=== PATIENT | female | born 1980 | race Caucasian/White ===

== ENCOUNTER 2021-03-01 06:55 | Day surgery (SDC) | payer OTHER ==
[~2021-03-01 06:55] MED LIST: BUPIVACAINE 0.5% VIAL IJ ONE; Lactated Ringers 1,000 ML IV ONE; XYLOCAINE 1% HCL 20 ML MDV ONE
[2021-03-01] MEDS: CEFAZOLIN 2 GM-D5W BAG** 2 GM/50 ML ML IV SCH (07:21)
[2021-03-01] MEDS: Lactated Ringers 1,000 ML IV SCH (07:21)
[2021-03-01] MEDS ORDERED: DIPRIVAN 200 MG/20 ML IV ONE (10:03)
[2021-03-01] MEDS ORDERED: Versed 2 MG/2 ML Injection ONE (10:03)
[2021-03-01] MEDS ORDERED: SUBLIMAZE 100 MCG/2 ML ONE ×2 (10:03→12:53)
[2021-03-01] MEDS ORDERED: Decadron 4 MG INJ ONE (10:03)
[2021-03-01] MEDS ORDERED: Zofran 4 MG/2 ML VIAL ONE ×2 (10:03→12:37)
[2021-03-01] MEDS ORDERED: Xylocaine-Mpf 2% 5 Ml Vial ONE (10:03)
--- NOTE | 2021-03-01 12:10 | XRAY ---
Indication: Hardware removal left foot. Intraoperative fluoroscopy provided for 2 minute 2 seconds. 7 digital spot images demonstrates partial removal of a talonavicular staple with remnant stable remaining in the navicular bone. Correlate with intraoperative findings/report.
[2021-03-01] MEDS ORDERED: Hydromorphone 1 mg/ml Injection ONE ×2 (12:37→12:53)
--- NOTE | 2021-03-01 14:19 | XRAY ---
2 minutes and 2 seconds fluoroscopy time in surgery for hardware removal of the left foot.
[2021-03-01 14:22] VITALS: BP 121/78; PULSE 87; O2SAT 96
--- NOTE | 2021-03-01 16:35 | OP ---
SURGERY DATE: 03/01/2021 SURGERY TIME: 100 PREOPERATIVE DIAGNOSIS: 1. PAINFUL HARDWARE IN SITU LEFT FOOT. 2. FAILURE OF HARDWARE LEFT FOOT. POSTOPERATIVE DIAGNOSIS: 1. 1. PAINFUL HARDWARE IN SITU LEFT FOOT. 2. FAILURE OF HARDWARE LEFT FOOT. PROCEDURE: 1. Removal of hardware left foot X 1. SURGEON: Deric Maldonado D.P.M. ASSISTED LIVING HOUSEKEEPER: None. ANESTHESIA: General plus local. HEMOSTASIS: An ankle tourniquet set to 250 mm of mercury for 86 minutes total tourniquet time. ESTIMATED BLOOD LOSS: Less than 20 cc. MATERIALS: 2-0 Vicryl and 3-0 Nylon. INJECTABLES: 30 cc of 1:1 mixtures of 1% Lidocaine plain and 25% bupivacaine plain that was injected preoperatively in an ankle block type fashion to the left ankle. INDICATIONS: Sherice is a very pleasant 40 y/o female who presented to my office with the complaint of pain to the left lower extremity which was seen by multiple other providers in the past which indicated that there were no pathologic issues despite an MRI having been performed and multiple sets of x-rays. The patient presents to me with complaints of pain to the inner aspect of the right ankle following a triple arthrodesis that was performed by another physician approximately 5 years ago. On inspection of the radiographs, it seemed as though there is a 5 mm area of backing out of one of the barbara in the talonavicular joint which has been resulting in some pain with subsequent pressure on the medial aspect of the foot. The patient was unaware of this and was informed. She did also have some Achilles tendon pain. However, no pathology was demonstrated with the MRI that was performed and no significant clinical issues were apparent with physician exam other than equinus deformity as well as some insertional Achilles tendonitis that was not picked up on the MRI with contrast. It is at this time we decided to proceed with surgical intervention of removal of hardware to the painful site at the medial and lateral aspect of the foot. The patient understands all risks, benefits, and complications of the procedure and still wishes to proceed with surgical intervention consisting of removal of hardware. PROCEDURE: The patient was brought in to the OR and assessed by the anesthesia team preoperative. At this time, general anesthesia was provided for the patient and the patient was sedated. At this time, a well-padded ankle tourniquet was applied to the left ankle and was set to 250 mm Hg. At this time, the left foot was prepped and draped in the typical sterile fashion and the extremity was lowered onto the surgical field. At this time, attention was directed to the left foot where an Esmarch was utilized to exsanguinate the foot. Fluoroscopy was utilized to assess the site where there was a backing out staple. Incision was made directly over this staple and the staple was attempted to be retrieved. At this time, there was significant difficulty with the removal of the hardware which resulted in breakage of the retrieving device. Multiple attempts were made in order to retrieve the orthopedic hardware in total. However, we had to resort to cutting the staple in half with wire cutters in order to retrieve the portion of offset and backing out hardware. The proximal aspect of the hardware was removed in total. However, there was still a residual piece that after multiple attempts of drilling out the hardware in order to prevent more destructive attempts at removing the hardware, it was decided that the hardware be cut flush with the bone and bone wax be applied. At this time, inspection of the surgical site demonstrated that there was no orthopedic hardware that was prominent in this area and no irritating remaining retained hardware in this area despite having one arm of the staple being retained. The patient also had complaint of pain with the orthopedic hardware on the lateral aspect of the foot. However, once dissection was taken place being careful not to disturb any of the neurovascular structures, it was determined that the barbara were imbedded underneath the bone and there would be more destructive forces in order to alleviate the pain that she has been experiencing due to removal of the hardware. Decision was made intraoperatively to leave this hardware intact and is not likely the cause of the pain at the lateral aspect of the foot. However, pain was consistent with the hardware backing out at the medial aspect of the foot. At this time, copious amounts of sterile saline were utilized to flush the surgical sites. 2-0 Vicryl was utilized to coapt the subcutaneous edges and 3-0 Nylon was utilized to coapt the skin edges in an everted type horizontal mattress type fashion. Following this, a dressing consisting of Betadine, Adaptic, 4 X 4's, Kerlex, and Sudarshan was applied to the left lower extremity and postoperatively, a CAM boot was applied. The patient was then reversed from anesthesia and handled the procedure without complication as well as the anesthesia without complication. Vital signs stable and vascular status was intact at the end of the procedure. The patient orders as described in the discharge notes.
== END 2021-03-01 14:15 | disposition home or self-care (01) ==
LOC: SDC 06:55
PROVIDERS: ATTEND Podiatrist Foot & Ankle Surgery
DX: T84.84XA Pain due to internal orthopedic prosthetic devices, implants and grafts, initial encounter (principal); M79.672 Pain in left foot; Z79.899 Other long term (current) drug therapy
CPT/HCPCS: 20680; 73620; 76000; 84703; 88304; J0690; J1100; J1170; J2250; J2405; J2704; J3010

== ENCOUNTER 2021-08-09 08:20 | Day surgery (SDC) | payer OTHER ==
[~2021-08-09 08:20] MED LIST changes: -Lactated Ringers 1,000 ML IV ONE; -XYLOCAINE 1% HCL 20 ML MDV ONE
[2021-08-09] MEDS ORDERED: CEFAZOLIN 2 GM-D5W BAG** 2 GM/50 ML ML IV SCH (09:00)
[2021-08-09] MEDS ORDERED: Lactated Ringers 1,000 ML IV SCH (09:00)
[2021-08-09] MEDS ORDERED: Lactated Ringers 1,000 ML IV ONE ×2 (09:01→16:42)
[2021-08-09] MEDS ORDERED: CEFAZOLIN 2 GM-D5W BAG** 2 GM/50 ML ML IV ONE (09:05)
[2021-08-09] MEDS ORDERED: DIPRIVAN 200 MG/20 ML IV ONE (09:42)
[2021-08-09] MEDS ORDERED: Xylocaine-Mpf 2% 5 Ml Vial ONE (11:38)
[2021-08-09] MEDS ORDERED: Zofran 4 MG/2 ML VIAL ONE (11:38)
[2021-08-09] MEDS ORDERED: SUBLIMAZE 100 MCG/2 ML ONE (11:38)
[2021-08-09] MEDS ORDERED: Versed 2 MG/2 ML Injection ONE (11:38)
[2021-08-09] MEDS ORDERED: Decadron 4 MG INJ ONE ×2 (11:38→15:25)
[2021-08-09] MEDS ORDERED: BRIDION 200MG/2ML IV ONE (11:44)
[2021-08-09] MEDS ORDERED: Zemuron 100 MG/10 ML ONE (11:44)
[2021-08-09] MEDS ORDERED: DILAUDID 2 MG INJECTION ONE (12:32)
[2021-08-09] MEDS ORDERED: BREVIBLOC 100 MG/10 ML IV ONE (14:04)
[2021-08-09] MEDS ORDERED: Ketamine HCl 50 MG/ML ONE (15:07)
[2021-08-09] MEDS ORDERED: Naropin 0.5% 30 ML VIAL ONE (15:25)
[2021-08-09] MEDS ORDERED: EPINEPHRINE 1MG/ML AMP ONE (15:25)
--- NOTE | 2021-08-09 18:07 | XRAY ---
Exam: Intraoperative C-arm images of the left foot from 08/09/2021. Indication: First, second, and third tarsal-metatarsal joint arthrodesis. Intraoperative fluoroscopy was provided for 5 minutes, 43 seconds. 10 intraoperative digital spot images submitted for interpretation demonstrate placement of an orthopedic sideplate along the medial aspect of the medial cuneiform and extending to the distal left first metatarsal shaft. There are 2 adjoining screws fixing the plate to the medial cuneiform and 4 threaded screws fixing the medial plate to the first metatarsal. In addition, there is a more proximal threaded screw traversing the plate and extending through the medial and mid cuneiform bones and into the medial aspect of the lateral cuneiform bone. I also note a threaded screw obliquely traversing the tarsal-second metatarsal joint from the base of the left second metatarsal into the middle cuneiform bone. There is also an obliquely oriented threaded screw traversing the tarsal-third metatarsal joint space extending from the base of the left third metatarsal into the lateral cuneiform bone. Lastly, there is another threaded screw which is oriented in the opposite oblique direction from the lateral cuneiform bone into the base of the left second metatarsal. Other prior placed orthopedic hardware is partially seen within the left hindfoot. Correlate with intraoperative findings/report.
[2021-08-09 18:36] VITALS: O2SAT 94
[2021-08-09 18:44] VITALS: BP 129/77; PULSE 96
--- NOTE | 2021-08-12 15:56 | XRAY ---
5 minutes 43 seconds of fluoroscopy was used in surgery for a left 1st, 2nd, and 3rd tarso-metatarsal joint arthrodesis.
--- NOTE | 2021-08-13 11:34 | OP ---
SURGERY DATE: 08/09/2021 SURGERY TIME: 1155 PREOPERATIVE DIAGNOSIS: 1. TARSOMETATARSAL JOINT OSTEOARTHRITIS 1, 2, AND 3. 2. PAIN LEFT FOOT. POSTOPERATIVE DIAGNOSIS: 1. TARSOMETATARSAL JOINT OSTEOARTHRITIS 1, 2, AND 3. 2. PAIN LEFT FOOT. PROCEDURE: 1. Tarsometatarsal joint arthrodesis joints 1, 2, and 3 as well as harvest of bone marrow aspirate. SURGEON: Deric Maldonado D.P.M. LABOR LAW PROFESSOR: None. ANESTHESIA: General plus popliteal block postoperatively. HEMOSTASIS: A 5 Tourniquet set to 350 mm Hg for 120 minutes then dropped for 15 minutes and then reinflated for an additional 45 minutes for a total tourniquet time of 165 minutes. ESTIMATED BLOOD LOSS: Less than 40 cc. MATERIALS: 2-0 Monocryl, 4-0 Monocryl, 3-0 Nylon, a lapidus ALPS plate from [employer], a 3.4/24 mm screw, multiple 3.4/26 mm headless compression screws as well as 32 mm/3.4 mm headless compression screw plus bonus triad with bone marrow aspirate. INJECTABLES: See anesthesia report for details. 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 Patient was successful in her fusion. However, very quickly picked up more motion at the tarsometatarsal joint and has developed some indications of arthritis. CT scan was obtained demonstrating adequate joint spaces. However, patient has failed conservative methods of treatment and does have pain with direct palpation to the tarsometatarsal joints and with range of motion of these joints. She has failed every conservative therapy including, but not limited to, orthotics, injections, a combination of these, periods of nonweight-bearing as well as physician therapy. Patient has become frustrated with the amount of pain that she has been experiencing over the course of the last 2 years since her initial surgical intervention. That is when she presented to my service. On initial inspection, the complaints of pain at the medial cuneiform were also tracking at the medial aspect of the ankle. On visualization of x-rays obtained, one of the barbara was prominent in this area and decision was made to proceed with the removal of hardware to see if this was the culprit for the pain that she was experiencing. Following this, she had very little relief of pain particularly to the tarsometatarsal joints. Some of the pain at the medial aspect resolved to some degree. At this time, we tried injections that lasted for less than 24 hours to the tarsometatarsal joint and the pain came right back afterwards. It is with this the patient wished to proceed with surgical intervention. Patient was consulted with already having the triple arthrodesis of the rear foot by having a midfoot fusion, she would likely develop arthritis at 1 or 2 other areas, her 1st metatarsophalangeal joint or her ankle joint as the stress would have to go somewhere as she is ambulating. The patient understands this. However, she states that the pain at this time is debilitating and she can no longer take it and she would prefer to have the joints fused if it eliminates her pain. Patient understands all risks, complications, and benefits of surgical intervention including, but not limited to, delayed wound healing, non-wound healing, possible need for further surgical intervention in the future, delayed skin healing, non-skin healing, hematoma, seroma, or infection. With all this, she understands and accepts the risks. She wishes to proceed with surgical intervention. Plenty of time was allowed for questions and they were answered to the patient's apparent satisfaction. It is with this we proceeded. DESCRIPTION OF PROCEDURE: The patient was brought in to the OR and placed on the OR table in the supine position. At this time, general anesthesia was administered and the left lower extremity was prepped and draped in sterile fashion. At this time, the tourniquet was set to 350 mm and a well-padded pneumatic thigh tourniquet was applied to the left thigh. At this time, fluoroscopy was utilized to plan for incision placement. This was deemed to be appropriate on the mortise and lateral views. Bone marrow aspirate was harvested from the calcaneus and passed off the field for mixing with the bonus triad. At this time, an Esmarch was utilized to exsanguinate the left lower extremity and the tourniquet was inflated to 350 mm Hg. Attention was first directed to the medial aspect of the foot where a dorsomedial incision was made approximately 4 cm utilizing a 15 blade being careful not to damage any of the neurovascular structures or the tibialis anterior tendon in this vicinity. At this time, a combination of blunt and sharp dissection was carried out down to the level of the 1st tarsometatarsal joint. At this time, the joint was prepped utilizing a combination of curettes, rongeurs, and osteotomes until the subchondral plate was fully exposed. At this time, attention was directed to the dorsal aspect of the foot where an incision was made superficially through the skin and through the subcutaneous layer only. Blunt dissection was performed in order to prevent any damage to neurovascular structures in this area. Once the neurovascular structures were freed from their soft tissue beds, they were retracted laterally and the 2nd and 3rd tarsometatarsal joints were exposed and prepped utilizing a combination of curettes, rongeurs, and osteotomes. Once all of the cartilage was denuded off of the surface of the joint, a copious amount of sterile saline was utilized to flush the surgical site removing any of the remaining cartilage from the surfaces. At this time, a 2-0 drill bit was utilized to penetrate the joint surfaces. This was then prepped using an osteotome and a mallet in a fish-scaling technique systematically exposing more of the subchondral plate and increasing the surface area. At this time, the joint surfaces were prepped and ready for fusion. The 1st metatarsophalangeal joint was held into a plantar flexed position relative to the medial cuneiform. At this time, the ALPS lapidus plate from [employer] was applied to the medial aspect of the joint. A K-wire was introduced from dorsolateral to plantar medial in order to keep the position of the plate and an additional K-wire was utilized to pin this in the opposite direction from dorsomedial to plantar lateral. This was checked under fluoroscopy and deemed to be adequate. The lapidus plate was then filled according to creative engagement director's specifications anchoring the plate to the bone utilizing a cortical screw. Following this, a combination of locking screws was introduced and then mesenteric compression screw was applied at this time. From this point on, the remainder of the screws were filled in as deemed necessary. This was checked under fluoroscopy and deemed to be in an adequate position. At this time, attention was directed to the 2nd tarsometatarsal joint where a number of cannulated screws were introduced from the dorsolateral aspect of the metatarsal bases into the intermediate and lateral cuneiforms respectively for the 2nd and 3rd metatarsal bases. At this time, a screw was introduced from the 2nd metatarsal to the medial cuneiform in order to stabilize the Lisfranc's portion of the midfoot joint and then an additional screw was placed from the medial cuneiform to the lateral cuneiform in order to stabilize the mid tarsal joint. Following this, final images were taken. Superficial flush was performed of the incision sites and the incisions were coapted utilizing 2-0 Monocryl, 4-0 Monocryl, and then 3-0 Nylon in a horizontal mattress type fashion. A popliteal block was then performed to the left lower extremity and the incision sites were covered utilizing Betadine, Adaptic, 4 X 4, Kerlex, and a well-padded posterior splint was applied to the patient's left lower extremity. The patient was then reversed from anesthesia and returned to the postoperative anesthesia care unit with vital signs stable and vascular status intact. The patient handled the anesthesia as well as the procedure without complication. Postoperative orders as indicated in the patient's chart.
== END 2021-08-09 18:35 | disposition home or self-care (01) ==
LOC: SDC 08:20 → EDSTATUS 14:06 → SDC 18:35
PROVIDERS: ATTEND Podiatrist Foot & Ankle Surgery
DX: M19.072 Primary osteoarthritis, left ankle and foot (principal); M79.672 Pain in left foot; Z79.899 Other long term (current) drug therapy
CPT/HCPCS: 28730; 64486; 73630; 76000; 76937; 76942; 84703; J0171; J0690; J1100; J1170; J2250; J2405; J2704; J2795; J3010

== ENCOUNTER 2023-05-12 10:33 | Day surgery (SDC) | payer MEDICARE ==
[2023-05-12 10:50] LABS: HCG URINE TEST NEGATIVE (NEGATIVE)
[2023-05-12] MEDS ORDERED: CEFAZOLIN 2 GM-D5W BAG** 2 GM/50 ML ML IV ONE (10:56)
[2023-05-12] MEDS ORDERED: Lactated Ringers 1,000 ML IV ONE ×2 (10:56→16:23)
[2023-05-12] MEDS ORDERED: CEFAZOLIN 2 GM-D5W BAG** 2 GM/50 ML ML IV SCH (11:00)
[2023-05-12] MEDS ORDERED: Lactated Ringers 1,000 ML IV SCH (11:00)
[2023-05-12 11:19] LABS: Hematocrit 39.9 % (35-47); Hemoglobin 13.1 g/dL (12.0-16.0); Mean Corpuscular Hemoglobin 30.5 pg (26-32); Mean Corpuscular Hgb Concent. 32.8 g/dL (32-36); Mean Platelet Volume 10.6 fL (7.5-11.0); Platelet Count 308 x10^3/uL (150-450); Red Blood Count 4.29 x10^6/uL (4.1-5.4); Red Cell Distribution Width 13.2 % (11.5-14.0); White Blood Count 7.6 x10^3/uL (4.0-10.5)
[2023-05-12] MEDS ORDERED: Transderm Scop 1.5MG Patch TOP PRN (11:19)
[2023-05-12] MEDS ORDERED: Pepcid 20 MG VIAL IV ONE (11:19)
[2023-05-12 11:37] LABS: ALBUMIN 3.9 g/dL (3.5-5.0); BILIRUBIN,TOTAL 0.5 mg/dL (0.2-1.3); Total Protein 7.5 g/dL (6.3-8.2)
[2023-05-12 11:40] LABS: ISTAT CREA 0.7 mg/dL (0.6-1.3); ISTAT K 4.4 mmol/L (3.5-4.9); ISTAT iCA 1.24 mmol/L (1.12-1.32)
[2023-05-12] MEDS ORDERED: Reglan 10 MG/2 ML ONE (11:42)
[2023-05-12] MEDS ORDERED: Decadron 4 MG INJ ONE (12:00)
[2023-05-12] MEDS ORDERED: Quelicin Fliptop 200 MG/10 ML ONE (12:00)
[2023-05-12] MEDS ORDERED: Zofran 4 MG/2 ML VIAL ONE (12:00)
[2023-05-12] MEDS ORDERED: DIPRIVAN 200 MG/20 ML IV ONE (12:00)
[2023-05-12] MEDS ORDERED: DEXMEDETOMIDINE 80 MCG/20ML-NS IV ONE (12:00)
[2023-05-12] MEDS ORDERED: Xylocaine-Mpf 2% 5 Ml Vial ONE (12:00)
[2023-05-12] MEDS ORDERED: Versed 2 MG/2 ML Injection ONE (12:02)
[2023-05-12] MEDS ORDERED: SUBLIMAZE 100 MCG/2 ML ONE (12:04)
[2023-05-12] MEDS ORDERED: Marcaine Mpf 0.5% Vial 30 Ml ONE (12:08)
[2023-05-12] MEDS ORDERED: MARCAINE 0.25% PF/ EPI 1:200,000 ONE (12:09)
[2023-05-12] MEDS ORDERED: Pre-Attached Lta Kit TP ONE (12:09)
[2023-05-12] MEDS ORDERED: OFIRMEV 100 ML IV ONE (12:09)
[2023-05-12] MEDS ORDERED: Epinephrine Preservative Free 1 MG/ML ONE ×2 (12:22→15:10)
[2023-05-12] MEDS ORDERED: Proair Hfa MDI IH ONE (14:50)
[2023-05-12] MEDS ORDERED: ATROPINE SULFATE 1MG ONE (14:53)
[2023-05-12] MEDS ORDERED: Ephedrine Sulfate 50 MG/ML ONE (14:55)
--- NOTE | 2023-05-12 16:37 | XRAY ---
Indication: Right ankle arthroscopy with synovectomy and stabilization. Intraoperative fluoroscopy provided for 52 seconds. 9 digital spot images submitted for interpretation demonstrates tarsal talocalcaneal fusion surgery with fixation hardware. Correlate with intraoperative findings/report.
[2023-05-12 17:33] VITALS: O2SAT 93
[2023-05-12 17:52] VITALS: BP 130/78; PULSE 64
--- NOTE | 2023-05-13 09:58 | OP ---
SURGERY DATE/TIME: 05/12/2023 1436 PREOPERATIVE DIAGNOSES: 1) Right ankle pain. 2) Right ankle instability. 3) Ankle synovitis. POSTOPERATIVE DIAGNOSES: 1) Right ankle pain. 2) Right ankle instability. 3) Ankle synovitis. PROCEDURES: 1) Ankle arthroscopy with complete synovectomy. 2) Lateral ankle stabilization with [place] lateral leg and ankle stabilization with Allograft. SURGEON: Deric Maldonado DPM. FEDERAL AID COORDINATOR: None. ANESTHESIA: General plus a preoperative popliteal and abductor canal block. HEMOSTASIS: Thigh tourniquet set to 350 mm of Mercury for a total of 55 total tourniquet minutes. ESTIMATED BLOOD LOSS: Approximately 10 cc. MATERIALS: Two - 6.2 screws and a 6 mm x 125 mm Gracilis allograft tendon, 4-0 Monocryl, 2-0 Vicryl, 3-0 Nylon. INJECTABLES: See anesthesia report for details. INDICATION FOR SURGERY: Sherice is a very pleasant 43-year-old female who is well-known to my service for surgery to the left lower extremity. However at this time the patient is having pain to the right ankle. Over the course of the last several months she has been treated and has failed conservative therapy for this ankle due to instability of the lateral ankle and inflammation within the ankle joint. The patient has failed therapy. She wishes to proceed with surgical intervention at this time. All risks, complications and benefits of surgical intervention were discussed including but not limited to infection, hematoma, seroma, possibility of delayed wound healing, nonwound healing, possibility of delayed tendon take and possibility of further instability at a later date. No guarantees were provided as to the outcome of surgical intervention. It is with that we decided to proceed. DESCRIPTION OF PROCEDURE AND FINDINGS: The patient is brought into the OR and placed on the OR table in the supine position. At this time, adequate general anesthesia was administered until the patient was sedated. A well-padded thigh tourniquet was applied to the patient's right thigh and set to 350 mm of Mercury. At this time attention was directed to the anteromedial and anterolateral aspects of the ankle. Landmarks were identified of the lateral malleolus and medial malleolus as well as palpable dell at the dorsal aspect of the joint. The lines were drawn and identified the anteromedial and anterolateral aspects of the ankle joint. Insufflation of the joint was carried out at this time utilizing 30 cc of lactated Ringer's in a 50 cc syringe over 18 gauge needle injected through the anteromedial portal site. The ankle joint was insufflated. An 11 blade was utilized to make an incision at the anteromedial aspect of the ankle. Blunt dissection was carried down utilizing curved hemostat where a peacock of insufflation fluid was identified. Blunt trocar was introduced with the obturator which was placed into the anteromedial portal and the obturator was then taken out. The 4.0 mm 30 degree camera was introduced into the anteromedial portal at this time. The joint was inspected with extensive synovitis seen as well as hemorrhagic synovitis seen at the lateral aspect of the ankle as well as the anterior tibial aspect of the joint line. At this time, a 4 mm Arthrex shaver was then introduced and extensive synovectomy was performed. Multiple pictures were taken during this portion of the procedure. The talar dome was then assessed for any osteochondral defects for which there were none identified. Lateral ankle ligaments were also identified and a great deal of disease and thickening of these tendons were identified. At this time the proximal limb of the anterior talofibular ligament was absent and the decision was made to proceed with the lateral ankle stabilization with [place]. At this time the shaver and the camera were removed from the surgical site. Esmarch was utilized to exsanguinate the leg and the tourniquet was inflated. At this time a linear incision was made at the posterior aspect of the fibula extending to the talar body this was carried down with layered dissection being careful not to damage any neurovascular structures along the way. Once reaching the fibula, a cuff of the anterior talofibular ligament was elevated this piece of tissue that was elevated was scared significantly and not attached to a distal component demonstrating complete degeneration of this tendon. The 6 mm Gracilis tendon was then folded over on itself and whipstitch to increase the bulk from a 3 mm to a 6 mm and from a 250 to 125 mm graft, this was drilled into the talus. The patient did have a subtalar joint fusion so less care was placed into not violating subtalar joint posterior facet from that standpoint being careful not to interfere with any of the previously placed screws for her triple arthrodesis. A 6 x 12 mm tenodesis screw was utilized to anchor the tendon into the talus. A 6 mm drill was carried through the posterior aspect of the fibula and the tendon was pulled through the fibula being careful not to impinge the peroneal tendon. It was carried down and underneath the peroneal tendon to the lateral aspect of the calcaneus where once again drill hole was made 6 mm in length and width in order to anchor the distal footprint of the tendon under tension. The foot was dorsiflexed and everted and the tenodesis screw was held under tension and anchored. This position was held. New stress views were taken of the anterior drawer and shelf which was deemed to be negative at this time. Following this the superior peroneal retinaculum was repaired utilizing 2-0 Vicryl, 4-0 Monocryl was utilized in simple interrupted-type fashion to coapt the subcutaneous tissue and the skin was coapted in horizontal mattress-type fashion. The two ankle portal sites were then coapted utilizing 3-0 nylon in a horizontal mattress-type fashion. Following this, a dressing consisting of Betadine, Adaptic, 4x4, Kerlix and a well-padded posterior splint with Sugar-Tong was applied to the patient's right ankle with the foot orthogonal relative to longitudinal axis of the leg. The patient then was reversed from anesthesia and returned to the postoperative anesthesia care unit with vital signs stable and vascular status intact. The patient handled the anesthesia as well as the procedure without significant complication. Postoperative orders as indicated in the patient's discharge chart.
--- NOTE | 2023-05-13 11:05 | XRAY ---
52 seconds of fluoroscopy was used in surgery for a right ankle arthroscopy with synovectomy and stabilization.
== END 2023-05-12 17:53 | disposition home or self-care (01) ==
LOC: SDC 10:33
PROVIDERS: ATTEND Podiatrist Foot & Ankle Surgery
DX: M65.871 Other synovitis and tenosynovitis, right ankle and foot (principal); M25.371 Other instability, right ankle; M25.571 Pain in right ankle and joints of right foot
CPT/HCPCS: 27698; 29898; 36415; 73610; 76000; 80047; 81025; 82040; 82247; 83521; 84075; 84450; 84460; 85027; J0171; J0330; J0461; J0690; J1100; J2250; J2405; J2704; J3010; A9270-GY